=== PATIENT | male | born 1970 | race African-American/Black ===

== ENCOUNTER 2024-08-10 09:24 | Emergency (ER) | payer OTHER ==
[~2024-08-10] VITALS: Ht 188 cm; Wt 106.8 kg
[2024-08-10 09:44] LABS: COVID AG,FIA SOURCE NASAL SWAB
[2024-08-10] MEDS: AmLODIPine BESYLATE 5 MG TABLET PO ONE (09:59)
[2024-08-10] MEDS: CloNIDine HCL 0.1 MG TABLET PO ONE (09:59)
[2024-08-10] MEDS: DiphenhydrAMINE HCL 25 MG CAPSULE PO ONE (10:00)
[2024-08-10 10:11] LABS: BASOPHILS % (AUTO) 0.5 % (0.0-2.0); EOSINOPHILS % (AUTO) 3.4 % (1.0-6.0); HEMATOCRIT 44.7 % (41-53); HEMOGLOBIN 15.4 g/dL (13.5-17.5); LYMPHOCYTES # (AUTO) 2.3 K/uL (1.0-4.8); LYMPHOCYTES % (AUTO) 24.3 % (22.0-44.0); MEAN CORPUSCULAR HEMOGLOBIN 28.4 pg (26.0-34.0); MEAN CORPUSCULAR HGB CONC 34.4 G/dL (31.0-37.0); MEAN CORPUSCULAR VOLUME 83 fL (80-100); MONOCYTES # (AUTO) 0.5 K/uL (0.1-1.0); MONOCYTES % (AUTO) 5.8 % (2.0-9.0); NEUTROPHILS # (AUTO) 6.2 K/uL (1.8-7.7); PLATELET COUNT (AUTO) 268 K/uL (150-450); RED BLOOD CELL COUNT(AUTO) 5.43 MIL/uL (4.50-5.90); RED CELL DISTRIBUTION WIDTH 12.6 % (11.5-14.5); WHITE BLOOD COUNT (AUTO) 9.4 K/uL (4.5-11.0)
[2024-08-10 10:15] LABS: ANION GAP 4 mmol/L (8-16); CALCIUM, TOTAL 8.5 mg/dL (8.8-10.5); CARBON DIOXIDE 29 mmol/L (22-29); CHLORIDE 106 mmol/L (98-107); CREATININE 1.13 mg/dL (0.60-1.30); GLOMERULAR FILTR. RATE CALC > 60 mL/min (>60); GLUCOSE,RANDOM 107 mg/dL (70-110); POTASSIUM 3.8 mmol/L (3.5-5.1); SODIUM SERUM 139 mmol/L (136-145); UREA NITROGEN, BLOOD 7 mg/dL (7-18)
[2024-08-10 10:19] LABS: PROTHROMBIN TIME 10.5 SEC (9.4-11.6)
[2024-08-10 10:29] LABS: SARS-COV2 (COVID) ANTIGEN,FIA Negative (Negative)
[2024-08-10 10:30] LABS: INFLUENZA TYPE A NEGATIVE FOR TYPE A (NEGATIVE); INFLUENZA TYPE B NEGATIVE FOR TYPE B (NEGATIVE)
[2024-08-10 10:35] LABS: B-TYPE NATRIURETIC PEPTIDE 29 pg/mL (0-100)
[2024-08-10 10:40] VITALS: TEMP 98.4
[2024-08-10 10:40] LABS: ALANINE AMINOTRANSFERASE 40 U/L (12-78); ALBUMIN 3.7 g/dL (3.4-5.0); ALKALINE PHOSPHATASE 45 U/L (46-116); ASPARTATE AMINOTRANSFERASE 21 U/L (15-37); BILIRUBIN,TOTAL 0.5 mg/dL (0.1-1.0); CREATINE KINASE, TOTAL ONLY 217 U/L (39-308); TOTAL PROTEIN, SERUM 7.2 g/dL (6.4-8.2)
[2024-08-10 10:57] LABS: TROPONIN I-HIGH SENSITIVITY 5 ng/L (<76)
[2024-08-10 11:13] VITALS: BP 141/81; PULSE 61; RESP 17; O2SAT 98
[2024-08-10] MEDS ORDERED: AMLO-257 PO (11:40)
[2024-08-10] MEDS ORDERED: DIPH-1243 PO (11:42)
[2024-08-10] MEDS: IBUPROFEN 600 MG TABLET PO ONE (11:42)
== END 2024-08-10 12:29 | disposition home or self-care (01) ==
LOC: EMS 09:24
DX: T63.481A Toxic effect of venom of other arthropod, accidental (unintentional), initial encounter (principal); I10 Essential (primary) hypertension; R51.9 Headache, unspecified; Z20.822 Contact with and (suspected) exposure to COVID-19; Y92.89 Other specified places as the place of occurrence of the external cause
CPT/HCPCS: 70450; 71045; 80053; 82550; 83880; 84484; 85025; 85610; 85730; 87804; 93005; 99285; 36415-L1; 36415-TC